=== PATIENT | female | born 1945 | race Caucasian/White ===

== ENCOUNTER 2018-04-09 01:31 | Inpatient (IN) | payer OTHER ==
[~2018-04-09] VITALS: Ht 165.1 cm; Wt 77.1 kg
[2018-04-09 01:47] VITALS: Ht 165.1 cm; Wt 77.1 kg
[2018-04-09 02:52] LABS: BASOPHIL % 0.7 % (0-2); PLATELET COUNT 156 x10^3mcL (130-400); RED CELL DISTRIBUTION WIDTH 13.3 % (11.5-14.5)
[2018-04-09 02:53] LABS: UA SPECIFIC GRAVITY <=1.005 (1.005-1.035); microscopic required? YES; urine erythrocyte NEGATIVE (NEGATIVE)
[2018-04-09 03:02] LABS: CALCIUM 9.2 mg/dL (8.5-10.1); CARBON DIOXIDE 28.3 mmol/L (21-32); CHLORIDE SERUM 103 mmol/L (98-107); CREATININE SERUM 0.9 mg/dL (0.6-1.0); GLUCOSE SERUM 132 mg/dL (74-106); POTASSIUM SERUM 3.8 mmol/L (3.5-5.1); SODIUM SERUM 133 mmol/L (136-145)
[2018-04-09 03:04] LABS: ALBUMIN 4.3 g/dL (3.4-5.0); ALKALINE PHOSPHATASE 93 U/L (46-116); ALT/SGPT 19 U/L (14-59); AST/SGOT 22 U/L (15-37); BILIRUBIN TOTAL 0.61 mg/dL (0.20-1.00); TOTAL PROTEIN, SERUM 7.9 g/dL (6.4-8.2)
[2018-04-09] MEDS ORDERED: LEVOTHYROXIN0.025 M2 (04:08)
[2018-04-09] MEDS ORDERED: LYRICA75 M1 (04:08)
[2018-04-09] MEDS ORDERED: METFORMIN HYDR500 M1 (04:08)
[2018-04-09] MEDS ORDERED: CHILDREN'S100 MG/52 PO (04:09)
[2018-04-09 05:32] LABS: MAGNESIUM 1.9 mg/dL (1.8-2.4); PHOSPHOROUS 3.6 mg/dL (2.5-4.9)
[2018-04-09 05:44] LABS: FREE T4 1.32 ng/dL (0.76-1.46); FREE THYROXINE INDEX 3.6 ug/dL (1.4-4.5); T4(THYROXINE) 9.6 ug/dL (4.7-13.3)
[2018-04-09 06:11] VITALS: BP 168/65
[2018-04-09 06:11] LABS: T3 TOTAL 0.84 ng/mL
[2018-04-09 09:41] VITALS: BP 144/63
[2018-04-09 09:56] LABS: AMPHETAMINE QUAL UR NONE DETECTED
[2018-04-09 13:41] VITALS: BP 134/65
[2018-04-09 17:28] VITALS: BP 122/58
[2018-04-09 20:41] VITALS: BP 122/56
[2018-04-10 04:59] VITALS: BP 142/63
[2018-04-10 06:44] LABS: BASOPHIL % 0.7 % (0-2); PLATELET COUNT 145 x10^3mcL (130-400); RED CELL DISTRIBUTION WIDTH 13.5 % (11.5-14.5)
[2018-04-10 06:56] LABS: CALCIUM 7.9 mg/dL (8.5-10.1); CARBON DIOXIDE 27.1 mmol/L (21-32); CHLORIDE SERUM 110 mmol/L (98-107); CREATININE SERUM 0.8 mg/dL (0.6-1.0); GLUCOSE SERUM 102 mg/dL (74-106); POTASSIUM SERUM 4.5 mmol/L (3.5-5.1); SODIUM SERUM 143 mmol/L (136-145)
[2018-04-10 06:59] LABS: MAGNESIUM 1.9 mg/dL (1.8-2.4); PHOSPHOROUS 3.6 mg/dL (2.5-4.9)
[2018-04-10 07:02] LABS: CHOLESTEROL/HDL RATIO 5.9
[2018-04-10] MEDS ORDERED: GOOD NEIGHBOR P20 M2 PO (09:21)
[2018-04-10] MEDS ORDERED: LYRICA75 M1 PO (09:22)
[2018-04-10] MEDS ORDERED: IBUPROFEN800 MG PO (09:23)
[2018-04-10] MEDS ORDERED: LORAZEPAM0.5 MG PO (09:24)
[2018-04-10] MEDS ORDERED: METFORMIN HYDR500 M1 PO (09:25)
[2018-04-10] MEDS ORDERED: LEVOTHYROXIN0.125 M2 PO (09:26)
[2018-04-10] MEDS ORDERED: HCTZ/LISINOPRIL1 TAB PO (09:27)
[2018-04-10 09:58] VITALS: BP 157/64
[2018-04-10 13:50] VITALS: BP 167/71
[2018-04-10 17:05] VITALS: BP 170/77
[2018-04-10 18:57] VITALS: BP 164/70
[2018-04-10 22:02] VITALS: BP 160/76
[2018-04-11 06:03] VITALS: BP 151/65
[2018-04-11 06:26] LABS: BASOPHIL % 0.8 % (0-2); PLATELET COUNT 143 x10^3mcL (130-400); RED CELL DISTRIBUTION WIDTH 13.3 % (11.5-14.5)
[2018-04-11 06:52] LABS: CALCIUM 8.9 mg/dL (8.5-10.1); CARBON DIOXIDE 26.7 mmol/L (21-32); CHLORIDE SERUM 108 mmol/L (98-107); CREATININE SERUM 0.8 mg/dL (0.6-1.0); GLUCOSE SERUM 104 mg/dL (74-106); MAGNESIUM 1.8 mg/dL (1.8-2.4); PHOSPHOROUS 4.1 mg/dL (2.5-4.9); POTASSIUM SERUM 4.2 mmol/L (3.5-5.1); SODIUM SERUM 144 mmol/L (136-145)
[2018-04-11 08:51] VITALS: BP 148/66
[2018-04-11 10:20] VITALS: BP 148/66
[2018-04-11] MEDS ORDERED: ZESTRIL20 MG PO (14:19)
[2018-04-11] MEDS ORDERED: HYDROCHLOROTH12.5 M3 PO (14:19)
== END 2018-04-11 15:08 | disposition home health service (06) | DRG 304 ==
LOC: ED 01:31 → DU 04:52
PROVIDERS: Emergency Medicine; Family Medicine; Student in an Organized Health Care Education/Training Program
DX: I16.0 Hypertensive urgency (principal); N17.0 Acute kidney failure with tubular necrosis; E87.1 Hypo-osmolality and hyponatremia; G90.8 Other disorders of autonomic nervous system; E11.51 Type 2 diabetes mellitus with diabetic peripheral angiopathy without gangrene; N30.90 Cystitis, unspecified without hematuria; K21.9 Gastro-esophageal reflux disease without esophagitis; F32.9 Major depressive disorder, single episode, unspecified; M06.9 Rheumatoid arthritis, unspecified; E03.9 Hypothyroidism, unspecified; M79.7 Fibromyalgia; M81.0 Age-related osteoporosis without current pathological fracture; Z68.28 Body mass index [BMI] 28.0-28.9, adult; Z79.84 Long term (current) use of oral hypoglycemic drugs
CPT/HCPCS: 82962; 83880; 84439; 97110-GP; 97116-GP; 97530-GP; 97535-GP; J0696; J1885; J2405; J3490; J7030; J8597; Q0092

== ENCOUNTER 2019-09-10 18:40 | Inpatient (IN) | payer OTHER ==
[~2019-09-10] VITALS: Ht 165.1 cm; Wt 77.2 kg
[~2019-09-10 18:40] MED LIST: CHILDREN'S100 MG/52 PO; GOOD NEIGHBOR P20 M2 PO; HCTZ/LISINOPRIL1 TAB PO; HYDROCHLOROTH12.5 M3 PO; IBUPROFEN800 MG PO; LEVOTHYROXIN0.025 M2; LEVOTHYROXIN0.125 M2 PO; LORAZEPAM0.5 MG PO; LYRICA75 M1; LYRICA75 M1 PO; METFORMIN HYDR500 M1; METFORMIN HYDR500 M1 PO; ZESTRIL20 MG PO
[2019-09-10 18:46] VITALS: Ht 165.1 cm; Wt 77.2 kg
--- NOTE | 2019-09-10 18:51 | NUR ---
EKG IN PROGRESS IN TRIAGE.
--- NOTE | 2019-09-10 19:24 | NUR ---
PT. ARRIVED FROM HOME, C/O CHEST PAIN, 06/09, RADIATED TO CENTER OF NECK, TO THE RIGHT SIDE OF THE SHOULDER, PALPITATIONS, SOB, DIZZINESS, FATIGUED, WEAK, BEGAND AT ABOUT 1600, PER DAUGHTER THIS IS THE FIRST TIME THIS HAS EVER HAPPENED, PT. STS SHE WAS OUTSIDE, AND THEN CALLED FOR HER DAUGHTER BECAUSE SHE STS, "I FELT MY HEART SHAKING." DAUGHTER THEN DECIDED TO BRING HER TO ER, PT. PLACED IN BED T1, AAOX4, HR 140-150'S, DR. LEE AT BEDSIDE, DAUGHTER AT BEDSIDE, EKG OBTAINED, IV ACCESS ONTAINED, SAFETY PRECAUTIONS IN PLACE, WILL MONITOR, 02 @ 2 L/MIN NC 02 SAT 99%
--- NOTE | 2019-09-10 19:30 | NUR ---
X RAY AT BEDSIDE
[2019-09-10 19:33] LABS: UA SPECIFIC GRAVITY <=1.005 (1.005-1.035); microscopic required? YES; urine erythrocyte TRACE (NEGATIVE)
[2019-09-10 19:35] LABS: BASOPHIL % 0.3 % (0-2); PLATELET COUNT 179 x10^3mcL (130-400); RED CELL DISTRIBUTION WIDTH 13.8 % (11.5-14.5)
[2019-09-10 20:10] LABS: FREE T4 0.63 ng/dL (0.76-1.46); FREE THYROXINE INDEX 1.8 ug/dL (1.4-4.5); T3 TOTAL 0.63 ng/mL; T4(THYROXINE) 5.8 ug/dL (4.7-13.3)
[2019-09-10 20:49] LABS: CARBON DIOXIDE 24.6 mmol/L (21-32); CHLORIDE SERUM 104 mmol/L (98-107); CREATININE SERUM 1.1 mg/dL (0.6-1.0); GLUCOSE SERUM 190 mg/dL (74-106); POTASSIUM SERUM 3.9 mmol/L (3.5-5.1); SODIUM SERUM 141 mmol/L (136-145)
[2019-09-10 20:53] LABS: ALBUMIN 4.6 g/dL (3.4-5.0); ALKALINE PHOSPHATASE 107 U/L (46-116); ALT/SGPT 17 U/L (14-59); AST/SGOT 21 U/L (15-37); BILIRUBIN TOTAL 0.3 mg/dL (0.20-1.00)
[2019-09-10 20:54] LABS: TOTAL PROTEIN, SERUM 9.2 g/dL (6.4-8.2)
--- NOTE | 2019-09-10 21:11 | NUR ---
MEDICATED PT. PER MD ORDER, PT. TOLERATED WELL, SEE EMAR
[2019-09-10] MEDS ORDERED: ATENOLOL50 MG PO (22:51)
[2019-09-10] MEDS ORDERED: SIMVASTATIN20 M1 PO (22:52)
[2019-09-10] MEDS ORDERED: AMLODIPINE BES2.5 M1 (22:53)
--- NOTE | 2019-09-10 23:02 | NUR ---
REPORT GIVEN TO GAVI CHINO
--- NOTE | 2019-09-10 23:30 | NUR ---
RECEIVED PT FROM ED VIA [facility], CAME IN DUE TO LEFT CHEST PAIN RADIATING TO THE LEFT ARM, DIZZINESS, BLURRY VISION AND FATIGUE. AAOX3-4. DENIES HEADACHE/DIZZINESS. ABLE TO FOLLOW COMMANDS. SPEECH IS CLEAR. NO SOB NOTED, LUNG SOUNDS CTA, O2 SAT=99% ON 2LPM/NC. DENIES CHEST PAIN/PRESSURE, AFIB ON THE MONITOR. DENIES ABDOMINAL DISCOMFORT. BOWEL SOUNDS ACTIVE. VOIDS. C/O FATIGUE. ABLE TO MOVE ALL EXTREMITIES. SIDE RAILS UPX2. CALL LIGHT ON REACH. PT'S DAUGHTER AT BEDSIDE. ENDORSED TO PRIMARY NURSE GAVI FOR CONTINUITY OF CARE
[2019-09-10 23:41] VITALS: BP 182/108
--- NOTE | 2019-09-10 23:53 | NUR ---
DR CALL MADE AWARE OF PT'S BP UPON ADMISSION 188/108, AWATING PHARMACY TO VERIFY THE ORDERS.
[2019-09-11] VITALS (7 sets, daily range): BP systolic 94–159; BP diastolic 53–82
--- NOTE | 2019-09-11 00:27 | NUR ---
DR CALL MADE AWARE OF PT'S EKG RESULT: A-FLUTTER.
--- NOTE | 2019-09-11 01:12 | NUR ---
SPOKE WITH DR CLAL THAT OKAY TO START ROCEPHIN IN AM.
[2019-09-11 05:11] LABS: BASOPHIL % 0.4 % (0-2); PLATELET COUNT 174 x10^3mcL (130-400); RED CELL DISTRIBUTION WIDTH 13.9 % (11.5-14.5)
[2019-09-11 05:34] LABS: CALCIUM 8.3 mg/dL (8.5-10.1); CARBON DIOXIDE 27.7 mmol/L (21-32); CHLORIDE SERUM 107 mmol/L (98-107); CHOLESTEROL 161 mg/dL (<200); CHOLESTEROL/HDL RATIO 5.2; CREATININE SERUM 0.8 mg/dL (0.6-1.0); GLUCOSE SERUM 126 mg/dL (74-106); HDL CHOLESTEROL 31 mg/dL (40-60); MAGNESIUM 1.9 mg/dL (1.8-2.4); PHOSPHOROUS 3.3 mg/dL (2.5-4.9); POTASSIUM SERUM 3.9 mmol/L (3.5-5.1); SODIUM SERUM 142 mmol/L (136-145); TRIGLYCERIDES 113 mg/dL (<150)
--- NOTE | 2019-09-11 06:16 | NUR ---
PT ASLEEP BUT EASILY AROUSABLE, SLEPT MOST OF NIGHT AFTER ADMITTED TO THE UNIT, ON TELE#30 A-FIB/A-FLUTTER, DENIES CHEST PAIN OR CHEST DISCOMFORT, MORNING BLOOD SUGAR- 122 MG/DL WITH NO RISS, NO DISTRESS NOTED, WILL KEEP TO MONITOR.
--- NOTE | 2019-09-11 07:20 | NUR ---
RECEIVED PATIENT LYING WITH BP 123/81 , HR 138. TELE 30 AFIB. COMPLAINTS OF CHEST PAIN PRESSURE LIKE AGGRAVATED WHEN LEANING FORWARD. PATIENT REPOSITIONED, CHEST PAIN RESOLVED. IV PATENT AND INTACT. NO REDNESS OR INFLAMMATION NOTED. CALL LIGHT WITHIN REACH. BED AT LOWEST POSITION.
--- NOTE | 2019-09-11 09:01 | NUR ---
SEEN PATIENT COMFORTABLE. TELE MONITOR AFIB 138. BP 123/81, HR 138. CHEST PAIN NOTED CHARACTERIZED TO BE PRESSURE LIKE PAIN 04/09. HYPERTENSIVE MEDICATIONS GIVEN. PATIENT DECLINED PAIN MEDICATION. REASSESSED PAIN AFTER 10 MINUTES AND NOTED NO PAIN. CALL LIGHT WITHIN REACH. BED AT LOWEST POSITION.
--- NOTE | 2019-09-11 11:12 | NUR ---
RECEIVED PATIENT , LYING COMFORTABLY, NOT IN RESPIRATORY DISTRESS. TELE 30 AFIB 138. IV PATENT AND NO REDNESS OR INFILTRATION. CHEST PAIN VERBALIZED /10. RELAXATION METHOD DONE. RESOLUTION OF PAIN NOTED. CALL LIGHT WITHIN REACH. BED AT LOWEST POSITION.
--- NOTE | 2019-09-11 11:19 | NUR ---
PATIENT SEEN WITH JUNCTIONAL RHYTHM HR 140. DOCTOR MADE AWARE. DR. CORRALES SEEN PATIENT AND TALKED ON TRANSFER TO ICU. AMIODARONE DRIP ORDERED. CALL LIGHT WITHIN REACH. BED AT LOWEST POSITION.
--- NOTE | 2019-09-11 11:30 | NUR ---
REPORT GIVEN TO ICU NURSE OTILIA TO TRANSFER PATIENT TO ICU. PATIENT BELONGINGS SECURED. ECG MONITOR 3 LEADS SECURED TO PATIENT FOR TRANSFER. TELE MONITOR 30 REMOVED. HR 140. ASSISTED TO BRP. CALL LIGHT WITHIN REACH. BED AT LOWEST POSITION.
--- NOTE | 2019-09-11 11:53 | NUR ---
RECIEVED PATIENT AT 1140 VIA BED ATTACHED TO TOOL AND DIE REPAIRER ACCOMPANIED BY NURSE. PATIENT ABLE TO TRANSFER FROM TELE BED TO ICU BED INDEPENDENTLY. VS UPON TRANSFER: TEMP 98.8 F, NIBP 136/82, MAP 93, HR A. FIB WITH RVR 125 BPM, RR 16, 02 SAT 97% RA AND DENIES PAIN. PATIENT IS A/O X4. ABLE TO FOLLOW COMMANDS AND MAKE NEEDS KNOWN. LANGUAGE BARRIER-UKRAINIAN SPEAKING. LS ARE CTA TO BUL AND DIMINSIHED TO BLL. RESPIRATIONS ARE EQUAL AND SYMMETRICAL. RADIAL/PEDAL PULSES PALPABLE. SKIN WTT. TRACE PITTING EDEMA NOTED TO BLE. IV NOTED TO LAC IN PLACE, FLUSHES WELL, NO SIGNS OF INFILTRATION AND SALINE LOCKED. SKIN IS INTACT. PATIENT ABLE TO TURN AND REPOSITION SELF IN BED. BED TO LOWEST POSITION, SIDE RAILS UP X3, CALL LIGHT WITHIN REACH. WILL CONTINUE TO MONITOR.
--- NOTE | 2019-09-11 12:49 | NUR ---
SPOKE WITH DR. CARRION REGARDING THE A. FIB WITH HR BETWEEN 70-130'S. OKAY TO GIVE AMIODARONE BOULS AND START AMIODARONE DRIP PER PROTOCOL AND CAN STOP THE DRIP IF HR IS LESS THAN 60 BPM. WILL FOLLOW AND CONTINUE TO MONITOR.
--- NOTE | 2019-09-11 13:38 | NUR ---
PHYSICAL THERAPY NOTE ATTEMPTED FOR PHYSICAL THERAPY; PATIENT IS TACHYCARDIC. PREPARING PATIENT TO ICU TRANSFER PER TANA CHINO. JOHANA ON HOLD
--- NOTE | 2019-09-11 18:52 | NUR ---
TECH AT BEDSIDE FOR ECHOCARDIOGRAM. WILL CONTINUE TO MONITOR.
--- NOTE | 2019-09-11 19:10 | NUR ---
RECEIVED REPORT FROM OTILIA CHINO. ASSUMING ALL CARE
--- NOTE | 2019-09-11 19:30 | NUR ---
AMIODARONE GTT TITRTED TO 0.5 MG/MIN PER PROTOCOL
--- NOTE | 2019-09-11 19:47 | NUR ---
RECEIVED PT LAYING IN BED. PT IS A/OX4. SPEECH IS CLEAR. ABLE TO MAKE NEEDS KNOWN/FOLLOW COMMADS. BREATHING IS E/U ON RA. LUNGS SOUND CLEAR BILAT. SYMMETRICAL CHEST EXPANSION NOTED. S1/S2 HEART SOUNDS AUSCULTATED. CHEST WALL EQUAL AND SYMMETRICAL. DENIES ANY CP. HR 78, NIBP 103/53 MAP 69. AMIODARONE GTT INFUSING @ 0.5 MCG/MIN. PALPABLE PULSES X4 EXTREMITIES. SKIN IS WARM AND DRY. TRACE EDEMA NOTED TO BLE. CAP REFILL < 3 SECS. SCD TO BLE. LAC IV INTACT/SECURED, WITH NO S/S OF INFILTRATION NOTED. ABD IS SOFT/FLAT, NONTENDER TO PALPATION. BOWEL SOUNDS ACTIVE X4 QUADRANTS. NO BM NOTED. PT VOIDS FREELY VIA BSC. SKIN IS INTACT. PT ABLE TO REPOSITION SELF INDEPENDENTLY. PT IS CALM AND COOPERATIVE. FAMILY AT BEDSIDE. BED IN LOW POSITION. CALL LIGHT IN REACH. WILL CONT TO MONITOR
--- NOTE | 2019-09-12 01:15 | NUR ---
PT IS SLEEPING, EASILY AROUSABLE. BREATHING IS E/U ON RA. AMIODARONE GTT INFUSING @ 0.5 MCG/MIN PER PROTOCOL, PT REMAINS IN AFIB. NO S/S OF ACUTE DISTRESS NOTED. WILL CONT TO MONITOR
[2019-09-12 03:06] VITALS: BP 110/56
--- NOTE | 2019-09-12 03:53 | NUR ---
IV INFILTRATED TO LAC, DC'D WITH ANGIOCATH INTACT. IV INSERTED TO RFA G 20 WITH GOOD BLOOD RETURN.
--- NOTE | 2019-09-12 04:28 | NUR ---
[employer] DRIVER AT BEDSIDE FOR AM LAB DRAW
[2019-09-12 04:59] LABS: BASOPHIL % 0.3 % (0-2); PLATELET COUNT 173 x10^3mcL (130-400)
[2019-09-12 05:08] LABS: CALCIUM 8.7 mg/dL (8.5-10.1); CARBON DIOXIDE 26.7 mmol/L (21-32); CHLORIDE SERUM 105 mmol/L (98-107); GLUCOSE SERUM 143 mg/dL (74-106); MAGNESIUM 2.2 mg/dL (1.8-2.4); PHOSPHOROUS 4.3 mg/dL (2.5-4.9); POTASSIUM SERUM 4.1 mmol/L (3.5-5.1); SODIUM SERUM 139 mmol/L (136-145)
--- NOTE | 2019-09-12 07:15 | NUR ---
REPORT GIVEN TO HANNA CHINO FOR CONTINUITY OF CARE. ALL QUESTIONS/CONCERNS ADDRESSED. ENDORSING ALL CARE
[2019-09-12 07:30] VITALS: BP 103/54
--- NOTE | 2019-09-12 07:30 | NUR ---
PATIENT AWAKE AND ORIENTED TO PERSON, PLACE AND TIME. PATIENT DENIES SHORTNESS OF BREATH, NAUSEA/VOMITING OR PAIN AT THIS TIME. AMIDARONE DRIP AT 0.5MG/MIN VIA IV SITE AT [facility]. TELE # 1 READS AFIB AT THIS TIME. CALL LIGHT WITHIN REACH. SIDE RAILS UP X3. BED IS AT LOWEST POSITION. DAUGHTER IS AT BEDSIDE.
--- NOTE | 2019-09-12 09:15 | NUR ---
DR. CORRALES AND THE TEAM WERE MAKING ROUND TO SEE THE PATIENT.
[2019-09-12 11:30] VITALS: BP 106/64
--- NOTE | 2019-09-12 12:54 | NUR ---
DR. CARRION IS AT BEDSIDE SEEING THE PATIENT AND EXPLAINING THE CARE PLAN TO THE PATIENT AND HER SON, RINA.
--- NOTE | 2019-09-12 13:40 | NUR ---
AMIODARONE DRIP COMPLETED. THE PATIENT'S IV SITE CONVERTED TO HEP-LOCK.
[2019-09-12 15:30] VITALS: BP 95/42
--- NOTE | 2019-09-12 18:30 | NUR ---
PATIENT C/O PAIN AT THE IV SITE AT RFA; IV REMOVED WITH CATH TIP INTACT, AND NEW IV SITE INSERTED TO LEFT HAND WITH # 22G. PATIENT TOLERATED WITH PROCEDURE.
--- NOTE | 2019-09-12 19:15 | NUR ---
REPORT GIVEN TO YOANDY CAREY RN. CONCERNS ADDRESSED.
--- NOTE | 2019-09-12 19:40 | NUR ---
Awake and verbally responsive. No respiratory distress noted on room air. Denies pain at this time. Denies n/v. Daughter at the bedside. Safety maintained. Call light within reach.
[2019-09-12 20:00] VITALS: BP 127/61
[2019-09-13] VITALS: BP 110/39
--- NOTE | 2019-09-13 03:45 | NUR ---
No significant change in condition noted. Afebrile. Denies pain. HR controlled. In no apparent distress.
[2019-09-13 04:00] VITALS: BP 113/61
[2019-09-13 06:36] LABS: CALCIUM 8.8 mg/dL (8.5-10.1); CARBON DIOXIDE 29.7 mmol/L (21-32); CHLORIDE SERUM 103 mmol/L (98-107); CREATININE SERUM 0.8 mg/dL (0.6-1.0); GLUCOSE SERUM 114 mg/dL (74-106); POTASSIUM SERUM 4.1 mmol/L (3.5-5.1); SODIUM SERUM 139 mmol/L (136-145)
--- NOTE | 2019-09-13 07:15 | NUR ---
PATIENT ALERT AND ORIENTED TO PERSON, PLACE AND TIME. PATIENT DENIES SHORTNESS OF BREATH, NAUSEA/VOMITING OR PAIN AT THIS TIME. TELE # 1 READS AFIB. IV SITE TO LEFT HAND. CALL LIGHT WITHIN REACH. SIDE RAILS UP X3. BED IS AT LOWEST POSITION. THE DAUGHTER IS AT BEDSIDE.
[2019-09-13 07:45] VITALS: BP 106/58
[2019-09-13 08:10] LABS: PLATELET COUNT 172 x10^3mcL (130-400)
--- NOTE | 2019-09-13 08:16 | NUR ---
SPOKE WITH DR DAILEY AND REPORTED HR 130'S. MORNING METOPROLOL HELD DUE TO PARAMETERS OF SYSTOLIC BP LESS THAN 120. REPORTED CURRENT BP 108/78. PER DR DAILEY, GIVE 0600 METOPROLOL NOW. ENDORSED TO RAMIREZ CHINO.
--- NOTE | 2019-09-13 09:51 | NUR ---
REPORT GIVEN MATTI CELESTIN FROM [facility]. CONCERNS WERE ANSWERED. PATIENT WILL BE TRANSFERRED TO ROOM 210B.
--- NOTE | 2019-09-13 10:10 | NUR ---
THE PATIENT WAS TRANSFERRED TO ROOM 210B, [facility] UNIT VIA WHEELCHAIR IN STABLE CONDITION. MATTI CELESTIN WAS AT BEDSIDE RECEIVING THE PATIENT. THE PATIENT'S DAUGHTER WAS AT BEDSIDE AND ACCOMPANIED THE PATIENT TO ROOM 210B.
--- NOTE | 2019-09-13 10:15 | NUR ---
RECIEVED PT FROM ICU TRANSFER VIA GURNEY ACCOMPANIED BY NURSE ÁNGELA AND FAMILY MEMBER. PT A/O X4 WITH NO C/O GAUTAM OR DIZZINESS. V/S WNL. PT CONNECTED TO TELE #15, MONITOR READING AFIB CONTROLLED AT 82 HR. PT DENIES ANY CP OR PRESSURE. TRACE NON-PITTING EDEMA NOTED TO BLE. LUNGS CTAB WITH NO SOB NOTED. BOWEL SOUNDS ACTIVE X4, DENIES ANY TENDERNESS. LAST BM 09/12/19 REGULAR ACCORDING TO PT. PT AMBULATORY WITH ASSIST. SKIN CDI. DENIES ANY PAIN OR DISTRESS. IV TO LEFT HAND INTACT AND PATENT, SALINE LOCKED. PT CALM AND COOPERATIVE TO CARE. SAFETY PRECAUTIONS IN PLACE, CALL LIGHT WITHIN REACH, WILL CONTINUE TO MONITOR.
--- NOTE | 2019-09-13 14:02 | NUR ---
PT STABLE SITTING IN BED WITH FAMILY AT BEDSIDE. PT REPORTS NO CP, PRESSURE, OR DISTRESS. SAFETY PRECAUTIONS IN PLACE, CALL LIGHT WITHIN REACH, WILL MONITOR.
[2019-09-13 17:05] VITALS: BP 108/66
--- NOTE | 2019-09-13 17:49 | NUR ---
PT STABLE SITTING IN BED WITH FAMILY AT BEDSIDE. ALL CARES TOLERATED WELL. VS WNL.TELE#15 CONNECTED TO PT, DENIES ANY CP OR PRESSURE. LEFT HAND IV INTACT AND PATENT WITH NO REDNESS OR INFLAMMATION NOTED. PT REPORTS NO CP, PRESSURE OR DISTRESS. SAFETY PRECAUTIONS IN PLACE, CALL LIGHT WITHIN REACH, WILL ENDORSE CARE TO NIGHT NURSE. .
--- NOTE | 2019-09-13 19:25 | NUR ---
RECEIVED PT IN BED AWAKE,ALERT,ORIENTED X4. FAMILY AT BEDSIDE VISITING. LUNGS CTA. NO SOB ON ROOM AIR. PT DENIED HAVING CHEST PAIN AND PALPITATIONS. NO C/O ABDL PAIN. W/ HL TO LTFA INTACT. CALL LIGHT W/IN R EACH.
--- NOTE | 2019-09-13 21:00 | NUR ---
PT C/O UPPER BACK PAIN 03/09. TYLENOL 650 MG PO GIVEN.
[2019-09-13 21:40] VITALS: BP 128/71
--- NOTE | 2019-09-13 23:26 | NUR ---
PT APPEARS TO BE SLEEPING COMFORTABLY. NO C/O DISCOMFORT. A FAMILY MEMBER IS AT BEDSIDE TO STAY OVERNIGHT.
[2019-09-13 23:45] VITALS: BP 102/50
--- NOTE | 2019-09-14 04:11 | NUR ---
ORTHODONTIC TECHNICIAN ASSISTANT CALLED INFORMING THAT PT HAD EPISODE OF PAUSE 5 SECS. CHECKED PT AND FOUND HER SLEEPING BUT EASILY AROUSABLE AND WITH NO COMPLAINTS. DR. CALL NOTIFIED.
--- NOTE | 2019-09-14 04:35 | NUR ---
PT AMBULATED TO THE RESTROOM TO VOID. SHE DENIED HAVING DIZZINESS AND CHEST PAIN BUT C/O RT BACK PAIN 05/09 AND REQUESTING FOR TYLENOL.
--- NOTE | 2019-09-14 04:40 | NUR ---
PT MEDICATED W/ TYLENOL 650 MG PO FOR C/O BACK PAIN 05/09. KEPT PT WARM AND COMFORTABLE IN BED.
--- NOTE | 2019-09-14 05:09 | NUR ---
PT SLEPT IN LONG INTERVALS. SHE REMAINS ALERT AND ORIENTED X4. SHE DENIED CHEST PAIN AND PALPITATIONS. SHE DENIED HEADACHE AND DIZZINESS. SHE WAS MEDICATED FOR BACK PAIN (RT SIDE) X2. SHE IS ABLE TO AMBULATE W/ STEADY GAIT. SHE VOIDS WELL. NO BM NOTED THIS SHIFT. HL TO LT HAND INTACT AND PATENT. ALL NEEDS ATTENDED TO. FAMILY MEMBER AT BEDSIDE AND VERY SUPPORTIVE.
[2019-09-14 05:27] VITALS: BP 106/69
[2019-09-14 06:46] LABS: BASOPHIL % 0.5 % (0-2); PLATELET COUNT 165 x10^3mcL (130-400); RED CELL DISTRIBUTION WIDTH 13.7 % (11.5-14.5)
[2019-09-14 07:19] LABS: CALCIUM 8.7 mg/dL (8.5-10.1); CARBON DIOXIDE 24.6 mmol/L (21-32); CHLORIDE SERUM 104 mmol/L (98-107); CREATININE SERUM 0.9 mg/dL (0.6-1.0); GLUCOSE SERUM 115 mg/dL (74-106); POTASSIUM SERUM 4.4 mmol/L (3.5-5.1); SODIUM SERUM 139 mmol/L (136-145)
--- NOTE | 2019-09-14 07:52 | NUR ---
RECEIVED HAND OFF REPORT FROM HOUSE RN. PATIENT AWAKE AND ALERT IN BED WITH FAMILY MEMBER AT BEDSIDE. ON ROOM AIR WITH NO SHORTNESS OF BREATH. TELE 15 ON CHEST SHOWING AFIB. ORIENTED PATIENT TO CALL LIGHT SYSTEM AND PLACED WITHIN REACH, WILL CONTINUE TO MONITOR
[2019-09-14 08:52] VITALS: BP 126/68
--- NOTE | 2019-09-14 09:12 | NUR ---
JENNY NEON SIGN MAKER ROUNDED ON PATIENT. UPDATED ON PLAN OF CARE AND INFORMED OF POSSIBLE DISCHARGE TOMORROW
--- NOTE | 2019-09-14 09:50 | NUR ---
PER DAUGHTER, PATIENT HAS APOINTMENT WITH [facility] ON FRIDAY 09/21
--- NOTE | 2019-09-14 09:52 | NUR ---
ADMINISTERED MEDICATION PER MAR. PATIENT REQUESTING TYLENOL FOR RIGHT SIDED PAIN WHEN SHE STRETCHES. STATING THAT THE MEDICATION HELPS HER AND THE [place] IS TOO STRONG. X2 FAMILY MEMBERS AT BEDSIDE
--- NOTE | 2019-09-14 12:27 | NUR ---
PATIENT BLOOD SUGAR RESULT WAS 102, NO COVERAGE NEEDED. PATIENT BLOOD PRESSURE WAS 108/66. PATIENT DID NOT WANT TO TAKE HER BLOOD PRESSURE MEDICATION DUE TO HER BLOOD PRESSURE BEING LOWER THAN SHE IS USED TO. HEART RATE 77, AFIB
[2019-09-14] MEDS ORDERED: METOPROLOL TART25 M1 PO (12:35)
[2019-09-14] MEDS ORDERED: ELIQUIS5 MG PO (12:36)
--- NOTE | 2019-09-14 13:26 | NUR ---
RACIEL MURPHY ENTERED DISHCARGE ORDERS FROM PATIENT. STATING THAT DR CARRION CLEARED PATIENT FROM CARDIOLOGY STANDPOINT.
[2019-09-14 13:31] VITALS: BP 108/63
--- NOTE | 2019-09-14 14:33 | NUR ---
DISCHARGE ORDER IN AND PATIENT READY FOR DISCHARGE. DAUGHTER AT BEDSIDE AND HELPED BOARDER MACHINE FOR PATIENT. REVIEWED HOSPITAL STAY WITH PATIENT. EDUCATED ABOUT AFIB AND NEW MEDICATION. REVIEWED RISKS OF BLOOD THINNERS, BLEEDING, FALLS, WELL STROKE SYMPTOMS. INFORMED PATIENT THAT MEDICATIONS HAVE BEEN SENT ELECTRONICALLY TO PHARMACY. INFORMED OF CHANGE TO METROPROLOL AND DISCONTINUED BLOOD PRESSURE MEDICATIONS. ANSWERED QUESTIONS THAT PATIENT HAS. PATIENT DAUGHTER STATED SHE HAS APPOINTMENT WITH [facility]. AND PCP [facility] AT [facility]. REMOVED IV FROM RIGHT HAND, CATH INTACT. TELE 15 REMOVED FROM PATIENT AND TAKED TO COLLEEN IN MONITOR ROOM. PIERCE HANDY ESCORTED PATIENT DOWN OFF FLOOR
== END 2019-09-14 14:50 | disposition home or self-care (01) | DRG 308 ==
LOC: ED 18:40 → DU 22:04 → IC 22:04 → DU 23:30 → IC 09-11 11:30 → DU 09-13 10:13
PROVIDERS: Emergency Medicine; Internal Medicine; ADMIT Internal Medicine
DX: I48.91 Unspecified atrial fibrillation (principal); N17.0 Acute kidney failure with tubular necrosis; N39.0 Urinary tract infection, site not specified; E11.65 Type 2 diabetes mellitus with hyperglycemia; I11.0 Hypertensive heart disease with heart failure; I50.9 Heart failure, unspecified; M06.9 Rheumatoid arthritis, unspecified; E78.5 Hyperlipidemia, unspecified; I25.10 Atherosclerotic heart disease of native coronary artery without angina pectoris; E03.9 Hypothyroidism, unspecified; M79.7 Fibromyalgia; Z79.899 Other long term (current) drug therapy; Z68.29 Body mass index [BMI] 29.0-29.9, adult; Z79.84 Long term (current) use of oral hypoglycemic drugs
CPT/HCPCS: 82962; 84439; G0378; J0282; J0696; J3490; J7030; Q0092